=== PATIENT | female | born 1985 | race Caucasian/White ===

== ENCOUNTER 2016-09-28 20:00 | Emergency (ER) | payer MEDICAID ==
[~2016-09-28 20:00] MED LIST: CIPR500T4 PO; NAPR550 PO; PHEN-426 PO
[2016-09-28 20:04] VITALS: BP 134/94; PULSE 76; RESP 20; TEMP 98.9; O2SAT 100
[2016-09-28] MEDS ORDERED: BACT800T5 PO (20:25)
[2016-09-28] MEDS ORDERED: CEPH500T PO (20:25)
--- NOTE | 2016-09-28 20:34 | PD ---
HPI Chief Complaint: Skin Problem Time Seen by Provider: 20:26 Travel History International Travel<30 days: No Contact w/Intl Traveler<30days: No Traveled to known affect area: No History of Present Illness HPI Patient is a 31-year-old female with a history of MRSA presenting with two-day history of multiple red swollen painful areas around her right groin and bilateral thighs. Small amount of drainage from one of the lesions. It was pustular. She denies picking at them or attempting to drain them. She denies fever, chills, nausea, vomiting and lymphadenopathy. She denies abdominal pain. She denies any vaginal discharge or urinary symptoms. She denies diabetes and history of immunocompromising states. She denies history of IVDA or illicit drug use. PFSH Past Medical History Medical History: Denies Significant Hx Integumentary: Yes (MRSA) Immunizations Current: Yes Tetanus Vaccination: Unknown Influenza Vaccination: No ?: Not LMP: 2 weeks ago : 1 Para: 1 Miscarriage: 0 : 0 Past Surgical History Section: Yes Gynecologic Surgery: Yes (2009 C section) Oral Surgery: Yes (WISDOM TEETH EXTRACTION) Tonsillectomy: Yes Social History Alcohol Use: Yes (Occ.) Tobacco Use: No Substance Use: No Allergies-Medications (Allergen,Severity, Reaction): Coded Allergies: No Known Allergies (Verified , 09/28/16) Reported Meds & Prescriptions Reported Meds & Active Scripts Active Cephalexin 500 Mg Tab 500 Mg PO Q6H Bactrim DS (Sulfamethoxazole-Trimethoprim) 800-160 Mg Tab 1 Tab PO BID Review of Systems Except as stated in HPI: all other systems reviewed are Neg Physical Exam Narrative GENERAL: Well-developed and well-nourished adult female in no acute distress. SKIN: Area in the right groin, right inner thigh and left posterior thigh of mild erythema and induration consistent with furuncles. Smallest is 5 mm, largest is 12 mm. Minimally tender. No pointing or draining. No fluctuance. No streaking or surrounding erythema or warmth. Warm and dry. Good turgor without tenting. HEAD: Normocephalic and atraumatic. NECK: Supple, no midline tenderness, crepitus or step-offs. Trachea midline, no JVD. CARDIOVASCULAR: Regular rate and rhythm without murmurs, rubs, clicks or gallops. RESPIRATORY: Clear to auscultation bilaterally with symmetrical rise and fall, no distress or use of accessory muscles. GASTROINTESTINAL: Non-tender, non-distended. Normal bowel sounds all 4 quadrants. No masses or organomegaly present. MUSCULOSKELETAL: No gait disturbances. Patient freely moving all four extremities spontaneously. Extremities without clubbing, cyanosis, or edema. No obvious deformities. LYMPH: Negative bilateral inguinal, cervical facial lymphadenopathy. NEUROLOGIC: CN II-XII grossly intact. Awake and alert. Motor grossly within normal limits. Normal speech. PSYCHIATRIC: Appropriate mood and affect; insight and judgment normal. *Patient was examined in the presence of a nurse, Izabel, at all times* Data Data Last Documented VS Vital Signs Date Time Temp Pulse Resp B/P Pulse Ox O2 Delivery O2 Flow Rate FiO2 09/28/16 20:04 98.9 76 20 134/94 100 Orders Ed Urine Pregnancytest Poc (09/28/16 20:24) MDM Medical Decision Making Medical Screen Exam Complete: Yes Emergency Medical Condition: Yes Differential Diagnosis Furunculosis versus abscess versus cellulitis Narrative Course Patient is a 31-year-old female who is afebrile, nontoxic without systemic complaints presenting with 3 areas of furunculosis on the groin and legs. Nothing amenable to drainage. No lymphadenopathy. Urine negative. Patient given Bactrim and Keflex as she has history of MRSA. Recommend follow- up with PCP in 2-3 days. Return for any worsening of symptoms.See discharge paperwork for further instructions. The plan was discussed with the patient who acknowledged their understanding and agreement. Reinforced the follow-up with primary care is critically important. Patient instructed on emergent conditions that should prompt return to ED. Diagnosis Primary Impression: Furunculosis Patient Instructions: Furunculosis and Carbunculosis (ED), General Instructions Additional Instructions: Keep area clean, dry, and covered with dressing/bandage Apply warm compresses daily to help with drainage Warm water Epsom salt soaks will help promote drainage Wound will continue to drain which is normal Take Tylenol or ibuprofen for pain Take medications as directed After skin lesions resolve recommend decontamination with OTC Hibiclens( chlorhexidine) topically Follow-up with PCP in 2 days, call laboratory for wound culture results Return to the ED for any acute worsening of symptoms including worsening swelling, spreading redness, fever, chills, nausea and vomiting Med/Other Pt SpecificInfo: Prescription(s) given Scripts Cephalexin 500 Mg [id number] Mg PO Q6H #40 TAB Prov:Sherry Pagan DO 09/28/16 Sulfamethoxazole-Trimethoprim (Bactrim DS)800-160 Mg Tab1 Tab PO BID #20 TAB Prov:Sherry Pagan DO 09/28/16 Disposition: 01 DISCHARGE HOME Condition: Stable Jah Cadena III Sep 28, 2016 20:34
[2016-09-29] MEDS ORDERED: MUPI2%T TOPICAL (16:53)
== END 2016-09-28 20:50 | disposition home or self-care (01) ==
LOC: PHEFT 20:00
DX: L02.425 Furuncle of right lower limb (principal); L02.426 Furuncle of left lower limb
CPT/HCPCS: 84703; 99282

== ENCOUNTER 2016-09-29 15:59 | Emergency (ER) | payer MEDICAID ==
[~2016-09-29] VITALS: Ht 157.5 cm; Wt 50.0 kg
[~2016-09-29 15:59] MED LIST changes: +BACT800T5 PO; +CEPH500T PO; -CIPR500T4 PO; -NAPR550 PO; -PHEN-426 PO
[2016-09-29 16:01] VITALS: BP 133/78; PULSE 84; RESP 16; TEMP 98.4; O2SAT 99
[2016-09-29] MEDS ORDERED: MUPI2%T TOPICAL (16:53)
--- NOTE | 2016-09-29 16:53 | PD ---
HPI Chief Complaint: Lump, Cyst, Hernia Time Seen by Provider: 16:45 Travel History International Travel<30 days: No Contact w/Intl Traveler<30days: No Traveled to known affect area: No History of Present Illness HPI 31-year-old female presents to the emergency department reporting worsening skin lesions on the posterior right thigh. Patient was seen yesterday at [place] emergency department and given Keflex and Bactrim which she did not take yet. Patient had difficulty getting the antibiotics to take. She felt like it was much worse today so she wanted to get it reevaluated prior to taking any more antibiotics. Denies fever, chills, or drainage. She has no known drug allergies. No history of MRSA in the past. PFSH Past Medical History Integumentary: Yes (MRSA) Immunizations Current: Yes ?: Not LMP: AUG 2016 : 1 Para: 1 Miscarriage: 0 : 0 Past Surgical History Section: Yes Gynecologic Surgery: Yes (2009 C section) Oral Surgery: Yes (WISDOM TEETH EXTRACTION) Tonsillectomy: Yes Social History Alcohol Use: Yes (Occ.) Tobacco Use: No Substance Use: No Allergies-Medications (Allergen,Severity, Reaction): Coded Allergies: No Known Allergies (Verified , 09/28/16) Reported Meds & Prescriptions Reported Meds & Active Scripts Active Cephalexin 500 Mg Tab 500 Mg PO Q6H Bactrim DS (Sulfamethoxazole-Trimethoprim) 800-160 Mg Tab 1 Tab PO BID Review of Systems Except as stated in HPI: all other systems reviewed are Neg General / Constitutional: No: Fever Eyes: No: Visual changes HENT: No: Headaches Cardiovascular: No: Chest Pain or Discomfort Respiratory: No: Shortness of Breath Gastrointestinal: No: Abdominal Pain Genitourinary: No: Dysuria Musculoskeletal: No: Pain Skin: Positive Lesions, No Rash Neurologic: No: Weakness Psychiatric: No: Depression Endocrine: No: Polydipsia Hematologic/Lymphatic: No: Easy Bruising Physical Exam Narrative GENERAL: Patient appears no acute distress. SKIN: Warm and dry. Patient has a total of 3 small what appear to be insect bites or ingrown hair localized erythema and swelling. The largest one is on the right posterior medial thigh with localized induration measuring approximate 10 cm in diameter. There is localized tenderness but no significant abscess formation appreciated the central area. There is no pointing currently. There is a second smaller similar lesion on the right medial thigh with only a small amount of induration measuring approximately 2 cm. Also similar lesions at the lower anterior abdomen with 2 cm induration. Again neither of these lesions show obvious deep abscess. HEAD: Atraumatic. Normocephalic. EYES: Pupils equal and round. No scleral icterus. No injection or drainage. ENT: No nasal bleeding or discharge. Mucous membranes pink and moist. Pharynx is normal. NECK: Trachea midline. Supple and nontender. CARDIOVASCULAR: Regular rate and rhythm. RESPIRATORY: No accessory muscle use. Clear to auscultation. Breath sounds equal bilaterally. MUSCULOSKELETAL: Extremities without clubbing, cyanosis, or edema. No obvious deformities. NEUROLOGICAL: Awake and alert. No obvious cranial nerve deficits. Motor grossly within normal limits. Five out of 5 muscle strength in the arms and legs. Normal speech. PSYCHIATRIC: Appropriate mood and affect; insight and judgment normal. Data Data Last Documented VS Vital Signs Date Time Temp Pulse Resp B/P Pulse Ox O2 Delivery O2 Flow Rate FiO2 09/29/16 16:01 98.4 84 16 133/78 99 Room Air MDM Medical Decision Making Medical Screen Exam Complete: Yes Emergency Medical Condition: Yes Differential Diagnosis Cellulitis. MRSA. Early abscess. Narrative Course Patient is medically stable at time of exam. I recommend the patient try the antibiotics orally as previously prescribed and add Bactroban ointment as well. Patient is to use hot compresses as discussed. Patient is to take ibuprofen as needed for discomfort. I explained the patient had at this time and do not feel there is a large abscess measuring to be drained at this time. I also explained that the antibiotics might help consolidate any abscess into a smaller central lesion that may drain on its own or required drainage in the next couple of days. Patient agrees with this plan and will follow-up only if symptoms do not continue to improve or worsen. Diagnosis Primary Impression: Cellulitis Qualified Code: L03.115 - Cellulitis of right lower extremity Patient Instructions: General Instructions Additional Instructions: I recommend the patient try the antibiotics orally as previously prescribed and add Bactroban ointment as well. Patient is to use hot compresses as discussed. Patient is to take ibuprofen as needed for discomfort. I explained the patient had at this time and do not feel there is a large abscess measuring to be drained at this time. I also explained that the antibiotics might help consolidate any abscess into a smaller central lesion that may drain on its own or required drainage in the next couple of days. Patient agrees with this plan and will follow-up only if symptoms do not continue to improve or worsen. Med/Other Pt SpecificInfo: Prescription(s) given, No Change to Meds Disposition: 01 DISCHARGE HOME Condition: Stable Inderjit Solis Sep 29, 2016 16:53
== END 2016-09-29 17:45 | disposition home or self-care (01) ==
LOC: NEPB 15:59
DX: Z86.14 Personal history of Methicillin resistant Staphylococcus aureus infection (principal); L03.115 Cellulitis of right lower limb
CPT/HCPCS: 99283

== ENCOUNTER 2016-12-03 13:17 | Emergency (ER) | payer MEDICAID ==
[~2016-12-03 13:17] MED LIST changes: +MUPI2%T TOPICAL
[2016-12-03 13:22] VITALS: BP 122/74; PULSE 110; RESP 18; TEMP 99.6; O2SAT 96
--- NOTE | 2016-12-03 13:29 | PD ---
HPI Chief Complaint: Skin Problem Time Seen by Provider: 13:29 Travel History International Travel<30 days: No Contact w/Intl Traveler<30days: No Traveled to known affect area: No History of Present Illness HPI 31-year-old female presents the emergency department with skin lesion to the medial left buttock. Patient states is gotten progressively worse in the past 5 days. She states it started out as a small pimple is gotten worse, with increased pain, swelling, erythema, and recent drainage. Patient has similar history, with question history of MRSA. Patient denies nausea, vomiting , fever, or other constitutional symptoms. No changes in bowel or bladder. She has no known drug allergies. PFSH Past Medical History Integumentary: Yes (MRSA) Immunizations Current: Yes : 1 Para: 1 Miscarriage: 0 : 0 Past Surgical History Section: Yes Gynecologic Surgery: Yes (2009 C section) Oral Surgery: Yes (WISDOM TEETH EXTRACTION) Tonsillectomy: Yes Social History Alcohol Use: Yes (Occ.) Tobacco Use: No Substance Use: No Allergies-Medications (Allergen,Severity, Reaction): Coded Allergies: No Known Allergies (Verified , 09/29/16) Reported Meds & Prescriptions Reported Meds & Active Scripts Active Ibuprofen 600 Mg Tab 600 Mg PO Q6H PRN Bactrim DS (Sulfamethoxazole-Trimethoprim) 800-160 Mg Tab 1 Tab PO BID Acetaminophen 325 Mg Tab 650 Mg PO Q6HR PRN Review of Systems Except as stated in HPI: all other systems reviewed are Neg General / Constitutional: No: Fever Eyes: No: Visual changes HENT: No: Headaches Cardiovascular: No: Chest Pain or Discomfort Respiratory: No: Shortness of Breath Gastrointestinal: No: Abdominal Pain Genitourinary: No: Dysuria Musculoskeletal: No: Pain Skin: No Rash Neurologic: No: Weakness Psychiatric: No: Depression Endocrine: No: Polydipsia Hematologic/Lymphatic: No: Easy Bruising Physical Exam Narrative GENERAL: Patient appears distress. SKIN: Warm and dry. Patient has a $0.50 piece sized abscess to the left lower medial buttock with tenderness, induration, erythema, and pointing with small amount of discharge. HEAD: Atraumatic. Normocephalic. EYES: Pupils equal and round. No scleral icterus. No injection or drainage. ENT: No nasal bleeding or discharge. Mucous membranes pink and moist. NECK: Trachea midline. No JVD. Supple and nontender. CARDIOVASCULAR: Regular rate and rhythm. RESPIRATORY: No accessory muscle use. Clear to auscultation. Breath sounds equal bilaterally. GASTROINTESTINAL: Abdomen soft, non-tender, nondistended. Hepatic and splenic margins not palpable. MUSCULOSKELETAL: Extremities without clubbing, cyanosis, or edema. No obvious deformities. NEUROLOGICAL: Awake and alert. No obvious cranial nerve deficits. Motor grossly within normal limits. Five out of 5 muscle strength in the arms and legs. Normal speech. PSYCHIATRIC: Appropriate mood and affect; insight and judgment normal. Data Data Last Documented VS Vital Signs Date Time Temp Pulse Resp B/P Pulse Ox O2 Delivery O2 Flow Rate FiO2 12/03/16 13:22 99.6 110 18 122/74 96 Orders Wound Culture And Gram Stain (12/03/16 13:32) Lidocai-Epi 1%-1:100,000 Inj (Xylocaine- (12/03/16 13:45) MDM Medical Decision Making Medical Screen Exam Complete: Yes Emergency Medical Condition: Yes Differential Diagnosis Cellulitis. MRSA. Abscess. Narrative Course Patient is medically stable at time of exam. I&D of abscess is performed with nursing manager specialty present. See procedure note. Packing is placed and should be removed in 2 days. Patient is placed on Bactrim DS twice a day 7 days. Patient is given ibuprofen and Tylenol for pain. Patient to follow up 2 days for wound check and packing removal. Patient can return sooner with worsening symptoms as needed. Procedures Procedure Narrative After the risks and benefits were discussed the following procedure was performed: INCISION AND DRAINAGE OF ABSCESS: The area was prepped and was sterilely draped. A subcutaneous wheal of 1% Xylocaine with epinephrine with a total number 3 mL was used to anesthetize the area. The area was properly anesthetized. A number 11 scalpel was used to make a 0.5-cm incision across the area of the abscess. Cultures were obtained. The abscess was drained an irrigated with normal saline. Quarter inch iodoform packing was placed in the wound. Sterile dressing applied. Patient advised to have packing removed in two days. Diagnosis Primary Impression: Abscess of buttock, left Referrals: [facility] Patient Instructions: Abscess Incision and Drainage (ED), General Instructions Additional Instructions: Packing is placed and should be removed in 2 days. Patient is placed on Bactrim DS twice a day 7 days. Patient is given ibuprofen and Tylenol for pain. Patient to follow up 2 days for wound check and packing removal. Patient can return sooner with worsening symptoms as needed. Med/Other Pt SpecificInfo: Prescription(s) given Scripts Ibuprofen 600 Mg [id number] Mg PO Q6H PRN (Pain/Inflammation) #40 TAB Prov:El Menendez MD 12/03/16 Sulfamethoxazole-Trimethoprim (Bactrim DS)800-160 Mg Tab1 Tab PO BID #14 TAB Prov:El Menendez MD 12/03/16 Acetaminophen 325 Mg [id number] Mg PO Q6HR PRN (PAIN SCALE 4 TO 10) #40 TAB Prov:El Menendez MD 12/03/16 Disposition: 01 DISCHARGE HOME Condition: Stable Inderjit Solis Dec 03, 2016 13:29
[2016-12-03] MEDS ORDERED: LIDOCAINE 1%/EPINEPHrine 1:100,000 SOLN 20 ML VIAL INFIL ONE (13:45)
[2016-12-03] MEDS ORDERED: ACET325T PO (13:50)
[2016-12-03] MEDS ORDERED: IBUP-232 PO (13:50)
[2016-12-03] MEDS ORDERED: BACT800T5 PO (13:50)
== END 2016-12-03 14:04 | disposition home or self-care (01) ==
LOC: PHEFT 13:17
DX: L02.31 Cutaneous abscess of buttock (principal); B95.62 Methicillin resistant Staphylococcus aureus infection as the cause of diseases classified elsewhere
CPT/HCPCS: 10061; 86403; 87070; 87186; 87205

== ENCOUNTER 2016-12-07 11:25 | Emergency (ER) | payer MEDICAID ==
[~2016-12-07] VITALS: Ht 157.5 cm; Wt 54.5 kg
[~2016-12-07 11:25] MED LIST changes: +ACET325T PO; -CEPH500T PO; +IBUP-232 PO; -MUPI2%T TOPICAL
[2016-12-07 11:38] VITALS: BP 128/81; PULSE 75; RESP 18; TEMP 98.4; O2SAT 98
--- NOTE | 2016-12-07 12:33 | PD ---
HPI Chief Complaint: Wound/Suture/Staple Re-Check Time Seen by Provider: 12:14 Travel History International Travel<30 days: No Contact w/Intl Traveler<30days: No Traveled to known affect area: No History of Present Illness HPI 31-year-old female who had a left buttocks abscess that was drained on Sunday, presents to the ER today because she states that she is continuing to have pain and swelling of the area, is concerned and wanted to get a wound check. She states the packing had fallen out yesterday. She rates her current pain is a 1 out of 10, worse with sitting on the area. She denies any fevers, difficulty having a bowel movement, or any other issues. Modifying Factors: None Associated Signs & Symptoms: Pain at previously drained left buttocks abscess area Risk Factors: None PFSH Past Medical History Diminished Hearing: No Integumentary: Yes (MRSA) Immunizations Current: Yes Tetanus Vaccination: < 5 Years Influenza Vaccination: No ?: Not LMP: 1 WEEK : 1 Para: 1 Miscarriage: 0 : 0 Past Surgical History Section: Yes Gynecologic Surgery: Yes (2009 C section) Oral Surgery: Yes (WISDOM TEETH EXTRACTION) Tonsillectomy: Yes Social History Alcohol Use: Yes (Occ.) Tobacco Use: No (never) Substance Use: No Allergies-Medications (Allergen,Severity, Reaction): Coded Allergies: *MDRO Multi-Drug Resistant Organism (Verified Adverse Reaction, Unknown, ) MRSA (buttock)-12/03/16 Reported Meds & Prescriptions Reported Meds & Active Scripts Active Ibuprofen 600 Mg Tab 600 Mg PO Q6H PRN Bactrim DS (Sulfamethoxazole-Trimethoprim) 800-160 Mg Tab 1 Tab PO BID Acetaminophen 325 Mg Tab 650 Mg PO Q6HR PRN Review of Systems Except as stated in HPI: all other systems reviewed are Neg Physical Exam Narrative GENERAL: Well-nourished, well-developed young white female patient in no acute distress. Awake and oriented 3. SKIN: Focused skin assessment warm/dry. The left buttocks wound is evaluated by me, there is a 1 cm incision which is appropriately opened, no significant surrounding erythema, mild induration, but no underlying fluctuance. HEAD: Normocephalic. EYES: No scleral icterus. No injection or drainage. NECK: Supple, trachea midline. CARDIOVASCULAR: Regular rate and rhythm without murmurs, gallops, or rubs. RESPIRATORY: Breath sounds equal bilaterally. No accessory muscle use. GASTROINTESTINAL: Abdomen soft, non-tender, nondistended. MUSCULOSKELETAL: No cyanosis, or edema. BACK: Nontender without obvious deformity. No CVA tenderness. Data Data Last Documented VS Vital Signs Date Time Temp Pulse Resp B/P Pulse Ox O2 Delivery O2 Flow Rate FiO2 12/07/16 11:50 16 12/07/16 11:38 98.4 75 128/81 98 MDM Medical Decision Making Medical Screen Exam Complete: Yes Emergency Medical Condition: Yes Medical Record Reviewed: Yes Differential Diagnosis Wound checkrule out underlying abscess or worsening cellulitis Narrative Course Would evaluation shows that the wound is healing well, there are no signs of underlying fluctuance or signs of underlying abscess worsening in cellulitis. Patient is continuing to treat her antibiotics which she started on Sunday. At this point, I would recommend her to finish up her antibiotics. I do not see any acute issues at this point. It appears that the wound is healing properly after abscess drainage. Return for any worsening in redness, pain, or new symptoms as needed. The plan was discussed with her and she states understanding. She is encouraged to continue washing the area out with water twice daily. Cover the area with gauze, change twice daily. Diagnosis Primary Impression: Wound check, abscess Disposition: DISCHARGE HOME Condition: Stable Aroldo Ortega MD Dec 07, 2016 12:33
== END 2016-12-07 12:37 | disposition home or self-care (01) ==
LOC: PHED 11:25
DX: L02.31 Cutaneous abscess of buttock (principal)
CPT/HCPCS: 99281

== ENCOUNTER 2017-03-25 11:56 | Emergency (ER) | payer MEDICAID ==
[2017-03-25 12:07] VITALS: BP 132/84; PULSE 76; RESP 18; TEMP 97.8; O2SAT 99
[2017-03-25] MEDS ORDERED: SODIUM CHLORIDE 0.9% FLUSH 10 ML FLUSH IV FLUSH PRN (12:15)
[2017-03-25] MEDS ORDERED: MORPHINE SULFATE 4 MG/ML INJ IV PUSH ONE (12:15)
[2017-03-25] MEDS ORDERED: ONDANSETRON HCL 4 MG/2 ML VIAL IVP ONE (12:15)
[2017-03-25 12:44] VITALS: BP 110/81; PULSE 90; RESP 20; O2SAT 99
[2017-03-25 12:44] LABS: BASOPHIL % 1.8 % (0.0-2.0); EOSINOPHIL # 0.1 TH/MM3 (0-0.4); EOSINOPHIL % 3.9 % (0.0-4.0); HEMATOCRIT 37.1 % (35.0-46.0); LYMPH % 48.1 % (9.0-44.0); LYMPHOCYTE # 1.3 TH/MM3 (1.0-4.8); MEAN CELL VOLUME 92.2 FL (80.0-100.0); MEAN CORPUSCULAR HEMOGLOBIN 30.9 PG (27.0-34.0); MEAN CORPUSCULAR HGB CONC 33.5 % (32.0-36.0); MONO % 7.1 % (0.0-8.0); NEUT % 39.1 % (16.0-70.0); PLATELET COUNT 171 TH/MM3 (150-450); RED BLOOD COUNT 4.03 MIL/MM3 (4.00-5.30); RED CELL DISTRIBUTION WIDTH 12.8 % (11.6-17.2); WHITE BLOOD COUNT 2.6 TH/MM3 (4.0-11.0)
--- NOTE | 2017-03-25 12:44 | PD ---
HPI Chief Complaint: GI Complaint Time Seen by Provider: 12:10 Travel History International Travel<30 days: No Contact w/Intl Traveler<30days: No Traveled to known affect area: No History of Present Illness HPI C/O 2DAYS COUGH, INITIALLY PROD OF CLEAR TO THEN YELLOW SPUTUM THEN LAST TIME SHE COUGHED IT WAS BRIGHT RED BLOODY SPUTUM. ONLY OCCURRED ONCE, SHE ALSO HAS FELT A TIGHTNESS AROUND HER UPPER QUADRANTS WELL (BELT LIKE, 2/10 AT BEST, AND WAS WONDERING IF THEY WERE RELATED). PATIENT DENIES FEVER/N/V/D AT THIS POINT [facility] Past Medical History Diminished Hearing: No Integumentary: Yes (MRSA) Immunizations Current: Yes ?: Not : 1 Para: 1 Miscarriage: 0 : 0 Past Surgical History Section: Yes Gynecologic Surgery: Yes (2009 C section) Oral Surgery: Yes (WISDOM TEETH EXTRACTION) Tonsillectomy: Yes Social History Alcohol Use: Yes (2 X'S PER WEEK) Tobacco Use: No (never) Substance Use: No Allergies-Medications (Allergen,Severity, Reaction): Coded Allergies: *MDRO Multi-Drug Resistant Organism (Verified Adverse Reaction, Unknown, ) MRSA (buttock)-12/03/16 Reported Meds & Prescriptions Reported Meds & Active Scripts Active No Active Prescriptions or Reported Medications Review of Systems Except as stated in HPI: all other systems reviewed are Neg Respiratory: Positive: Cough Physical Exam Narrative GENERAL: SKIN: Warm and dry. HEAD: Atraumatic. Normocephalic. EYES: Pupils equal and round. No scleral icterus. No injection or drainage. ENT: No nasal bleeding or discharge. Mucous membranes pink and moist. NECK: Trachea midline. No JVD. CARDIOVASCULAR: Regular rate and rhythm. RESPIRATORY: No accessory muscle use. Clear to auscultation. Breath sounds equal bilaterally. GASTROINTESTINAL: Abdomen soft, non-tender, nondistended. MUSCULOSKELETAL: Extremities without clubbing, cyanosis, or edema. No obvious deformities. NEUROLOGICAL: Awake and alert. No obvious cranial nerve deficits. Motor grossly within normal limits. Five out of 5 muscle strength in the arms and legs. Normal speech. PSYCHIATRIC: Appropriate mood and affect; insight and judgment normal. Data Data Last Documented VS Vital Signs Date Time Temp Pulse Resp B/P Pulse Ox O2 Delivery O2 Flow Rate FiO2 03/25/17 12:44 90 20 110/81 99 03/25/17 12:07 97.8 Orders Urinalysis - C+S If Indicated (03/25/17 11:58) Ed Urine Pregnancytest Poc (03/25/17 11:58) Complete Blood Count With Diff (03/25/17 12:11) Comprehensive Metabolic Panel (03/25/17 12:11) Lipase (03/25/17 12:11) Iv Access Insert/Monitor (03/25/17 12:11) Ecg Monitoring (03/25/17 12:11) NPO (03/25/17 12:11) Morphine Inj (Morphine Inj) (03/25/17 12:15) Ondansetron Inj (Zofran Inj) (03/25/17 12:15) Sodium Chloride 0.9% Flush (Ns Flush) (03/25/17 12:15) Ed Poc Ultrasound (03/25/17 12:11) D-Dimer (03/25/17 12:23) Ct Pulmonary Angiogram (03/25/17 13:07) Iohexol 350 Inj (Omnipaque 350 Inj) (03/25/17 13:47) Labs Laboratory Tests Test 03/25/17 03/25/17 12:35 13:15 White Blood Count 2.6 TH/MM3 Red Blood Count 4.03 MIL/MM3 Hemoglobin 12.5 GM/DL Hematocrit 37.1 % Mean Corpuscular Volume 92.2 FL Mean Corpuscular Hemoglobin 30.9 PG Mean Corpuscular Hemoglobin 33.5 % Concent Red Cell Distribution Width 12.8 % Platelet Count 171 TH/MM3 Mean Platelet Volume 8.1 FL Neutrophils (%) (Auto) 39.1 % Lymphocytes (%) (Auto) 48.1 % Monocytes (%) (Auto) 7.1 % Eosinophils (%) (Auto) 3.9 % Basophils (%) (Auto) 1.8 % Neutrophils # (Auto) 1.0 TH/MM3 Lymphocytes # (Auto) 1.3 TH/MM3 Monocytes # (Auto) 0.2 TH/MM3 Eosinophils # (Auto) 0.1 TH/MM3 Basophils # (Auto) 0.0 TH/MM3 CBC Comment AUTO DIFF Differential Comment AUTO DIFF CONFIRMED D-Dimer Quantitative (PE/DVT) 0.47 MG/L FEU Sodium Level 142 MEQ/L Potassium Level 3.7 MEQ/L Chloride Level 109 MEQ/L Carbon Dioxide Level 26.7 MEQ/L Anion Gap 6 MEQ/L Blood Urea Nitrogen 9 MG/DL Creatinine 0.66 MG/DL Estimat Glomerular Filtration 104 ML/MIN Rate Random Glucose 95 MG/DL Calcium Level 7.9 MG/DL Total Bilirubin 0.4 MG/DL Aspartate Amino Transf 17 U/L (AST/SGOT) Alanine Aminotransferase 17 U/L (ALT/SGPT) Alkaline Phosphatase 40 U/L Total Protein 7.1 GM/DL Albumin 3.6 GM/DL Lipase 178 U/L Urine Collection Type CLEAN CATCH Urine Color YELLOW Urine Turbidity CLEAR Urine pH 6.0 Urine Specific [place] 1.011 Urine Protein NEG mg/dL Urine Glucose (UA) NEG mg/dL Urine Ketones NEG mg/dL Urine Occult Blood TRACE Urine Nitrite POS Urine Bilirubin NEG Urine Leukocyte Esterase TRACE Urine RBC 0-3 /hpf Urine WBC 0-2 /hpf Urine Squamous Epithelial > 8 /hpf Cells Microscopic Urinalysis Comment CULT NOT INDICATED Urine Collection Time 13:15 MDM Medical Decision Making Medical Screen Exam Complete: Yes Emergency Medical Condition: Yes Medical Record Reviewed: Yes Interpretation(s) BEDSIDE ULTRASOUND LIMITED RUQ PERFORMED AND INTERPRETED BY ME: NO GB WALL THICKENING, NO GALLSTONES, NO PERICHOLECYSTIC FLUID NOTED EITHER. Differential Diagnosis GALLSTONES V LIVER/PANCREAS DZ V PNA V PE Narrative Course NO BILIARY DZ NOTED ON BEDSIDE ULTRS, NORMAL LFT'S AND PANCREATIC ENZYMES WELL. DID DISCUSS HER MILD LEUKOPENIA AND HOW THAT NEEDS TO BE ADDRESSED BY HER PCP WELL. CT CHEST NEG FOR PE Diagnosis Primary Impression: ACUTE BRONCHITIS Patient Instructions: Acute Bronchitis (ED), General Instructions Scripts Hydrocodone-Chlorpheniramine 12 HR Liq (Tussionex Pennkinetic Ext 12 HR Liq)10- 8 Mg/5 Ml Susp5 Ml PO Q12H PRN (COUGH AND/OR COLD SYMPTOMS) #30 ML Ref 0 Prov:Suresh King MD 03/25/17 Ciprofloxacin 500 Mg [id number] Mg PO BID #14 TAB Prov:Suresh King MD 03/25/17 Disposition: 01 DISCHARGE HOME Condition: Stable Suresh King MD Mar 25, 2017 12:44
[2017-03-25 12:54] LABS: CHLORIDE 109 MEQ/L (98-107); POTASSIUM 3.7 MEQ/L (3.5-5.1); SODIUM (NA) 142 MEQ/L (136-145)
[2017-03-25 12:58] LABS: ANION GAP 6 MEQ/L (5-15); BICARBONATE 26.7 MEQ/L (21.0-32.0); BLOOD UREA NITROGEN 9 MG/DL (7-18)
[2017-03-25 12:59] LABS: HEMO FLAGS AUTO DIFF
[2017-03-25 13:01] LABS: ALT (GPT) 17 U/L (10-53); AST (GOT) 17 U/L (15-37); GLOMERULAR FILTRATION RATE 104 ML/MIN (>89)
[2017-03-25 13:02] LABS: TOTAL BILIRUBIN ADULT 0.4 MG/DL (0.2-1.0)
[2017-03-25 13:04] LABS: ALKALINE PHOSPHATASE 40 U/L (45-117)
[2017-03-25 13:23] LABS: SCAN/DIFF AUTO DIFF CONFIRMED
[2017-03-25 13:25] LABS: BLOOD, URINE TRACE (NEG); GLUCOSE,URINE NEG (NEG); KETONE, URINE NEG (NEG)
[2017-03-25 13:26] LABS: METHOD OF COLLECTION CLEAN CATCH; NITRITE,URINE POS (NEG); URINE COLOR YELLOW (YELLW/STRAW)
[2017-03-25 13:27] LABS: COMMENT (UR) CULT NOT INDICATED; CULTURE IF INDICATED CULT NOT INDICATED; RBC, URINE 0-3 /hpf (0-3); SQUAMOUS EPITHELIAL CELL URINE > 8 /hpf (0-5); WBC, URINE 0-2 /hpf (0-5)
[2017-03-25] MEDS ORDERED: IOHEXOL 350 MG/ML 10 ML VIAL (for RAD DIAG) IV ONE (13:47)
--- NOTE | 2017-03-25 13:57 | RADRPT ---
EXAM DATE/TIME: 03/25/2017 13:30 [place] COMPARISON: No previous studies available for comparison. INDICATIONS : Epigastric pain and hemoptysis. IV CONTRAST: 65 cc Omnipaque 350 (iohexol) IV RADIATION DOSE: 6.79 CTDIvol (mGy) MEDICAL HISTORY : None SURGICAL HISTORY : section. ENCOUNTER: Initial ACUITY: 2 days PAIN SCALE: 0/10 LOCATION: chest TECHNIQUE: Volumetric scanning of the chest was performed using a pulmonary embolism protocol MIP images were re constructed. Using automated exposure control and adjustment of the mA and/or kV according to patien t size, radiation dose was kept as low as reasonably achievable to obtain optimal diagnostic quality images. DICOM format image data is available electronically for review and comparison. Follow-up recommendations for incidentally detected pulmonary nodules are based at a minimum on nodul e size and patient risk factors according to Fleischner Society Guidelines. FINDINGS: PULMONARY ARTERIES: No filling defects are seen in the pulmonary arteries through the segmental level. LUNGS: There is no consolidation or pneumothorax . No concerning pulmonary nodule is visualized. PLEURAE: There is no pleural thickening or pleural effusion. MEDIASTINUM: There is good visualization of the great vessels of the middle mediastinum. No evidence of mediastin al or hilar adenopathy/mass. MUSCULOSKELETAL: Within normal limits for patient age. MISCELLANEOUS: The visualized upper abdominal organs demonstrate no acute abnormality. There is mild reflux into th e hepatic veins. CONCLUSION: Negative for central pulmonary emboli. Gelacio Barrett MD FACR on March 25, 2017 at 13:53 Board Certified Radiologist. This report was verified electronically.
[2017-03-25] MEDS ORDERED: CIPR500T2 PO (15:11)
[2017-03-25] MEDS ORDERED: TUSSSUS2 PO (15:11)
== END 2017-03-25 15:27 | disposition home or self-care (01) ==
LOC: PHED 11:56
DX: J20.9 Acute bronchitis, unspecified (principal)
CPT/HCPCS: 71275; 80053; 81001; 83690; 84703; 85025; 85379; 96374; 96375; 99285; J2270; J2405; Q9967